=== PATIENT | male | born 1980 | race Caucasian/White ===

== ENCOUNTER → 2018-05-01 07:51 | Outpatient (CLI) | payer BC, SELFPAY ==
[2018-05-01 08:36] LABS: Alanine Aminotransferase 42 IU/L (21-72); Albumin 4.8 g/dL (3.5-5.0); Albumin Globulin Ratio 1.7 (1.0-2.8); Alkaline Phosphatase 60 U/L (38-126); Aspartate Aminotransferase 26 IU/L (17-59); Bilirubin Total 0.8 mg/dL (0.2-1.3); Blood Urea Nitrogen 17 mg/dL (9-20); Calcium 9.7 mg/dL (8.4-10.2); Carbon Dioxide 26 mmol/L (22-32); Chloride 101 mmol/L (98-107); Cholesterol 296 mg/dL (140-199); Estimated Glomerular Filt Rate > 60.0 mL/min (>60); Globulin 2.8 g/dL (1.7-4.1); Glucose 100 mg/dL (70-100); HDL Cholesterol 35 mg/dL (40-60); HEMOLYSIS < 15 (0-50); Potassium 4.2 mmol/L (3.4-5.1); Sodium 138 mmol/L (137-145); Total Protein 7.6 g/dL (6.3-8.2); Triglycerides 504 mg/dL (35-150)
[2018-05-01 09:11] LABS: Thyroid Stimulating Hormone 1.51 uIU/mL (0.47-4.68)
== END ==
PROVIDERS: PCP Physician Assistant; Visit Provider Physician Assistant
DX: E78.5 Hyperlipidemia, unspecified (principal); Z20.2 Contact with and (suspected) exposure to infections with a predominantly sexual mode of transmission
CPT/HCPCS: 36415; 80053; 80061; 84443; 86695; 86696

== ENCOUNTER 2018-06-25 22:32 | Emergency (ER) | payer BC, SELFPAY ==
--- NOTE | 2018-06-25 22:34 | ED.GENADULT ---
HPI - General Adult General Chief complaint: Dizziness Stated complaint: DIZZY SPELLS URINE SMELL Time Seen by Provider: 06/25/18 22:33 Source: patient Mode of arrival: ambulatory Limitations: no limitations History of Present Illness HPI narrative: 37-year-old male with a history of hypertension hyperlipidemia here for evaluation of approximately 1 week of occasional lightheadedness. Patient states that it comes and goes. He does not notice that is associated with any particular activity such as standing or walking or changing positions. He states that when the symptoms come on he feels very lightheaded. He states that he ?feel out of my body ?. Symptoms last very in length of times. States that occasionally when this happens he also gets some ?unclear ?and ?less sharp ?vision. Has no other associated symptoms that time to include headache, palpitations, chest pain, nausea vomiting, numbness and tingling in his hands and feet, ringing in his ears. Has not tried anything for prior to arrival. He came in tonight because today he started having his urine smells very strongly of ammonia CC came in for evaluation. Related Data Home Medications Medication Instructions Recorded Confirmed cholecalciferol (vitamin D3) 1,000 1,000 unit PO DAILY 04/19/18 05/28/18 unit capsule lisinopril 40 mg tablet 40 mg PO DAILY 04/19/18 06/25/18 multivitamin tablet 1 tab PO DAILY 04/19/18 05/28/18 omeprazole 20 mg capsule,delayed 20 mg PO DAILY 04/19/18 05/28/18 release Calcium Carbonate 600 mg PO .QDAY 05/28/18 05/28/18 Previous Rx's Medication Instructions Recorded fenofibrate 160 mg tablet 160 mg PO .HS #45 tab 05/28/18 buspirone 5 mg tablet 5 mg PO BID #60 tab 06/06/18 Allergies Allergy/AdvReac Type Severity Reaction Status Date / Time codeine Allergy Unknown Unknown, Verified 06/25/18 22:41 pt does not know. Sulfa (Sulfonamide Allergy Unknown Patient Verified 06/25/18 22:41 Antibiotics) was a child - parents told him measles, mumps, and rubella AdvReac Unknown swollen Verified 06/25/18 22:41 vaccine arm - was a child Review of Systems Constitutional Denies chills, Denies fatigue, Denies fever(s), Denies headache(s), Denies lethargy, Denies malaise and Denies weakness ENT Ears, Nose, Mouth, and Throat: Denies vertigo, Denies dizziness, Denies headache(s) and Reports disequilibrium Cardiovascular Denies chest pain, Denies syncope, Denies edema, Denies palpitations and Denies dyspnea Respiratory Denies pain on inspiration, Denies dyspnea and Denies wheezing Gastrointestinal Gastrointestinal: Denies abdominal pain, Denies change in stool character, Denies nausea and Denies vomiting Genitourinary Denies hematuria, Denies oliguria, Denies dysuria and Denies testicular pain Comments: Ammonia smell to the urine Musculoskeletal Denies myalgias and Denies arthralgias Integumentary/Breasts Denies lesions and Denies rash Neurologic Denies confusion, Denies vertigo, Denies dizziness, Denies syncope, Denies headache(s), Denies focal weakness, Denies radicular pain, Denies paresthesias, Reports disequilibrium and Denies weakness Psychiatric Denies confusion Endocrine Denies fatigue and Denies palpitations Hematologic/Lymphatic Denies easy bleeding and Denies easy bruising Allergic/Immunologic Denies wheezing [facility] Medical History Depression (Chronic 1994) HTN (hypertension) (Chronic 2005) Herpes (Chronic 2014) Ankle pain (Resolved 2016) Foot pain (Resolved 2016) Hemorrhoids (Resolved 2001) Shoulder pain (Resolved 2011) Surgical History No history of previous surgery (Resolved) Family History Mother Hypertension Gallstones Hyperlipidemia Mental health problem Grandmother Hypertension Gallstones Diabetes mellitus Hyperlipidemia Grandfather Heart disease Hypertension Hyperlipidemia Father Hyperlipidemia Social History household members: none lives independently: Yes occupational status: employed Smoking Status: Former smoker second hand exposure: Yes (Years ago when I was a kid) alcohol intake: current (Like a couple beers a week) substance use type: does not use Exam Initial Vital Signs Initial Vital Signs: Vital Signs Temperature 97.3 F L 06/25/18 22:36 Pulse Rate 74 06/25/18 22:36 Respiratory Rate 18 06/25/18 22:36 Blood Pressure 128/87 06/25/18 22:36 Pulse Oximetry 97 06/25/18 22:36 Const General: cooperative, healthy appearing, comfortable, well developed, well groomed and No acute distress Orientation: alert, awake and oriented x3 HENMT Head: normal to inspection, normocephalic and atraumatic Ears: TM normal on the right, left TM abnormal (Slightly bulging however no erythema) and EAC's normal Resp Effort & Inspection: normal respiratory effort Auscultation: clear to auscultation bilaterally Cardio Rate: regular rate Rhythm: regular rhythm Pulses: radial pulses present GI Inspection: non-distended Palpation: soft and No tender Skin Lesions: no lesions Rashes: no rashes Neuro General: alert, awake and oriented x3 Cranial Nerves: CN's II-XI intact bilaterally and PERRL Cognition: normal cognition Speech: speech normal Gait: normal gait Motor: muscle tone normal throughout Sensory Exam: no sensory deficits noted Extrem General: normal to inspection, capillary refill normal and No edema Psych Appearance: grossly normal and well kempt Course Orders Ordered: ED Orders 06/25/18 22:35 EKG-12 Lead Stat 06/25/18 23:05 Basic Metabolic Panel Stat Complete Blood Count AUTO DIFF Stat Vital Signs - 8 hr 06/25/18 22:36 06/25/18 23:25 06/25/18 23:26 Temperature 97.3 F L 97.3 F L Pulse Rate 74 72 72 Respiratory Rate 18 17 17 Blood Pressure 128/87 128/87 Blood Pressure [Right Arm] 123/72 Pulse Oximetry 97 98 98 Medical Decision Making Lab Data Lab results reviewed: Yes I reviewed the patient's lab results. Result diagrams: 06/25/18 23:05 06/25/18 23:05 Lab Results 06/25/18 06/25/18 Range/Units 23:05 23:05 WBC 8.7 (4.5-11.0) X10^3/uL RBC 4.64 (4.5-5.9) X10^6/uL Hgb 15.0 (13.5-17.5) g/dL Hct 42.9 (41-53) % MCV 92.5 (80-100) fL MCH 32.4 (26-34) PG MCHC 35.1 (30-36) % RDW 12.9 (11.6-14.8) % Plt Count 266 (150-400) X10^3/uL Neut % (Auto) 33.8 L (50-75) % Lymph % (Auto) 55.7 H (25-40) % [place] % (Auto) 6.7 (3-14) % Eos % (Auto) 3.4 (2-4) % Baso % (Auto) 0.4 (0-2) % Neut # (Auto) 2900 L (4567-8331) /uL Sodium 140 (137-145) mmol/L Potassium 4.0 (3.4-5.1) mmol/L Chloride 104 (98-107) mmol/L Carbon Dioxide 25 (22-32) mmol/L BUN 16 (9-20) mg/dL Creatinine 1.00 (0.66-1.25) mg/dL Estimated GFR > 60.0 (>60) mL/min BUN/Creatinine Ratio 16.0 (6-22) Glucose 100 (70-100) mg/dL Calcium 9.3 (8.4-10.2) mg/dL Urine Dip Bedside Urine Glucose Negative Bedside Urine Bilirubin - Negative Bedside Urine Ketone - Negative Urine Specific [place] 1.010 Bedside Urine Occult Blood - Negative Bedside Urine pH 6.0 Bedside Urine Protein - Negative Bedside Urine Urobilinogen - Negative Bedside Urine Nitrite - Negative Bedside Urine Leukocytes - Negative Esterase Point of care testing: Urine Dip Bedside Urine Glucose Negative Bedside Urine Bilirubin - Negative Bedside Urine Ketone - Negative Urine Specific [place] 1.010 Bedside Urine Occult Blood - Negative Bedside Urine pH 6.0 Bedside Urine Protein - Negative Bedside Urine Urobilinogen - Negative Bedside Urine Nitrite - Negative Bedside Urine Leukocytes - Negative Esterase ECG Data Attestation: I personally reviewed and interpreted this ECG as follows: Prior ECG tracings: not available for review Interpretation: Sinus rhythm Ventricular rate is 65 Normal axis Normal intervals Normal QRS No ST T wave changes MDM Narrative Medical decision making narrative: Patient with normal labs, unremarkable EKG, unremarkable exam. Doubt CVA, doubt Tia, does have some fluid behind his left ear. Patient's blood pressure also less than 120/80. Had a long discussion with him regarding his symptoms. Recommended that he started a decongestant to see whether not this would improve his symptoms. We also discussed the importance of him taking his blood pressure at home and seeing if he can take his blood pressure when he is having the symptoms to see whether not he is becoming hypotensive. Patient expressed understanding and agreement with this plan. Use instructed need to contact his primary care provider. Discharge Plan Departure Patient Disposition: Home Clinical Impression: Episodic lightheadedness Instructions: DI for Dizziness-Nonvertigo Activity Restrictions/Additional Instructions: Recommend that you start a daily decongestants such as Elsi/Claritin/Zyrtec like we discussed. Also recommend that you take your blood pressure like we discussed. Call your primary care doctor for a follow-up. Return to the emergency department for any new or worsening symptoms Prescriptions: No Action multivitamin tablet 1 tab PO DAILY RF: 0 omeprazole 20 mg capsule,delayed release(DR/EC) 20 mg PO DAILY RF: 0 lisinopril 40 mg tablet 40 mg PO DAILY RF: 0 cholecalciferol (vitamin D3) 1,000 unit capsule 1,000 unit PO DAILY RF: 0 Calcium Carbonate 600 mg PO .QDAY RF: 0 fenofibrate 160 mg tablet 160 mg PO .HS Qty: 45 RF: 1 buspirone 5 mg tablet 5 mg PO BID Qty: 60 RF: 0
[2018-06-25 22:36] VITALS: BP 128/87; PULSE 74; RESP 18; TEMP 36.3; O2SAT 97; BMI 34.7
[2018-06-25 23:12] LABS: Add Manual Diff / Slide Review NO; Basophils Percent Auto 0.4 % (0-2); Eosinophils Percent Auto 3.4 % (2-4); Hematocrit 42.9 % (41-53); Lymphocytes Percent Auto 55.7 % (25-40); Mean Corpuscular HGB Conc 35.1 % (30-36); Mean Corpuscular Hemoglobin 32.4 PG (26-34); Mean Corpuscular Volume 92.5 fL (80-100); Monocytes Percent Auto 6.7 % (3-14); Neutrophils Absolute Auto 2900 /uL (3000-5900); Neutrophils Percent Auto 33.8 % (50-75); Platelet Count 266 X10^3/uL (150-400); Red Blood Cell Count 4.64 X10^6/uL (4.5-5.9); Red Cell Distribution Width 12.9 % (11.6-14.8); White Blood Cell Count 8.7 X10^3/uL (4.5-11.0)
[2018-06-25 23:18] LABS: Blood Urea Nitrogen 16 mg/dL (9-20); Calcium 9.3 mg/dL (8.4-10.2); Carbon Dioxide 25 mmol/L (22-32); Chloride 104 mmol/L (98-107); Estimated Glomerular Filt Rate > 60.0 mL/min (>60); Glucose 100 mg/dL (70-100); HEMOLYSIS 19 (0-50); Sodium 140 mmol/L (137-145)
[2018-06-25 23:25] VITALS: BP 123/72; PULSE 72; RESP 17; O2SAT 98
[2018-06-25 23:26] VITALS: BP 128/87; PULSE 72; RESP 17; TEMP 36.3; O2SAT 98; BMI 34.7
[2018-06-25 23:59] VITALS: BP 115/60; PULSE 77; RESP 17; O2SAT 98
== END 2018-06-26 00:01 | disposition home or self-care (01) ==
PROVIDERS: Emergency Provider Emergency Medicine; PCP Physician Assistant
DX: R42 Dizziness and giddiness (principal)
CPT/HCPCS: 36591; 80048; 81003; 85025; 93005; 99283; 99284; 99291

== ENCOUNTER → 2018-07-20 07:33 | Outpatient (CLI) | payer BC, SELFPAY ==
[2018-07-20 09:30] LABS: Cholesterol 242 mg/dL (140-199); HDL Cholesterol 39 mg/dL (40-60); LDL Cholesterol Calculated 135 mg/dL (<100); Triglycerides 339 mg/dL (35-150)
== END ==
PROVIDERS: PCP Physician Assistant; Visit Provider Physician Assistant
DX: E78.2 Mixed hyperlipidemia (principal)
CPT/HCPCS: 36415; 80061